=== PATIENT | female | born 1975 | race Caucasian/White ===

== ENCOUNTER 2020-04-10 14:57 | Outpatient (CLI) | payer OTHER ==
--- NOTE | 2020-04-12 11:09 | Mammography Report ---
BILATERAL DIGITAL SCREENING MAMMOGRAM: 04/10/2020 CLINICAL: Routine screening. Comparison is made to exams dated: 12/08/2017 mammogram, 12/24/2016 mammogram, and 11/28/2015 mammogram - [facility]. There are scattered fibroglandular elements in both breasts. No significant masses, calcifications, or other findings are seen in either breast. There has been no significant interval change. IMPRESSION: NEGATIVE There is no mammographic evidence of malignancy. A 1 year screening mammogram is recommended. This exam was interpreted at Station ID: [id number]. NOTE: For mammograms, a report in lay terms will be sent to the patient. Approximately 15% of breast malignancies will not be visualized mammographically. In the management of a palpable breast mass, a negative mammogram must not discourage biopsy of a clinically suspicious lesion. Electronically Signed By: Brendan Koch M.D. atwing/ginnyrad:04/11/2020 17:40:00 ACR BI-RADS Category 1: Negative 3341F PARENCHYMAL PATTERN: (A) - The breast(s) demonstrate(s) scattered fibroglandular densities. BI-RADS CATEGORY: (1) - 1 RECOMMENDATION: (ANNUAL) - Recommend routine annual screening mammography. [id number] 1 year screening LATERALITY: (B)
== END 2020-04-10 14:58 | disposition home or self-care (01) ==
LOC: DI.N 14:57
DX: Z12.31 Encounter for screening mammogram for malignant neoplasm of breast (principal)
CPT/HCPCS: 77067

== ENCOUNTER 2022-12-02 15:45 | Outpatient (CLI) | payer OTHER ==
--- NOTE | 2022-12-02 12:17 | Sleep Patient Instructions ---
Sleep Center Visit Summary - Patient Visit Information Reason for Visit: Initial consult for evaluation of sleep disordered breathing and other sleep issues. - Patient Instructions Instructions Attached: Sleep Study, Sleep Clinic Visit Additional Instructions: You will be completing a sleep study, either an in-lab polysomnography (PSG) or home sleep study (HST). You will follow-up in the sleep care office after the sleep study is completed to hear the results and talk about therapy, if needed. You will be called by our office staff to schedule this appointment, but you may contact us with any questions. - Clinic Information Contact: [facility] [address] [place] [address] [email or web address] T: [phone]
[2022-12-02 16:25] VITALS: BP 122/76
--- NOTE | 2022-12-02 16:25 | SLEEP CARE CONSULTATION ---
Information from patient questionnaire entered by Maria Del Carmen Mccormick. I have reviewed and concur with the information entered by Maria Del Carmen Mccormick. This document represents the service I personally performed and the decisions made by me, Julissa Coley ARNP. History of Present Illness Service Date and Time: 12/02/2022 1545 Reason for Visit: New patient Chief Complaint: reports: Unrefreshed sleep, Snoring, Observed pauses in breathing, Fatigue, Frequent awakenings at night Date of Onset: 3-4YRS Usual bedtime: 10 PM Time it takes to fall asleep: 30-60 MIN Snores at night: Yes Observed to quit breathing while asleep: Yes Sleeps alone due to snoring: No Number of times waking at night: 2-3 Reasons for waking at night: reports: Choking, Snoring, Gasping for air, Bathroom Toss, Turn, or Twitch while sleeping: Yes Recalls having dreams: Yes Usually gets out of bed at: 7-730 AM Feels refreshed in the morning: No Morning headache: Yes (3-4 days a week; 9-10AM) Sleepy or fatigued during the day: Yes Ever fallen asleep while driving: No Takes day naps: No Dreams during day naps: No Prior sleep studies: No Additional HPI information: I had the pleasure of seeing CALI BARON today regarding the possibility of her having a sleep disorder. Her current complaints are fatigue, frequent night awakenings, observed pauses in breathing, snoring and unrefreshed sleep. She states she does not wake up feeling refreshed in the morning. She is fatigue during the day. She is a teacher. She has been told she snores loudly and has some pauses in breathing when asleep. She states she is waking herself up with snoring and sometimes a gasping of air. - Parasomnia Symptoms Ever been unable to move upon waking from sleep: No Walks in sleep: No Talks in sleep: Yes Ever acted out dreams in sleep: Yes (small hand movements) Ever felt weak in the knees when startled or emotional: No Bothered by creepy, crawly, restless sensations in legs: Yes (sometimes; evenings mostly) Problems with memory or concentration: Yes (more memory) Subjective Initial [place] Sleepiness Scale score: 9 (12/02/22) Past Medical History Past Medical History: reports: Other (ALLERGIES SEASONAL) Social History The patient's occupation is a TEACHER. Patient is and lives in [place]. Have you smoked in the past 12 months: No Alcohol use: No Caffeine use: Yes Caffeine amount and frequency: 1-2CUPS DAILY Family History Family history of sleep disordered breathing: Yes Family Hx Sleep Apnea: Mother: Snoring, Father: Snoring, Sibling: Snoring, Sleep apnea - Untreated Allergies and Home Medications Known drug allergies: No Drug allergies reviewed: Yes Home medication list reviewed: Yes Allergy and home medication list: Medications: Flonase Kiana Multivitamins Review of Systems Weight gain over past 5 years: 15 Cardiovascular: denies: high blood pressure Respiratory: reports: chronic cough. denies: shortness of breath Gastrointestinal: denies: heartburn Urinary: reports: frequency Neurological: reports: headaches. denies: seizure, head trauma Psychiatric: denies: Attention Deficit Hyperactivity, anxiety, depression Ear/Nose/Throat: reports: nasal congestion, sinus problems, dry mouth/throat. denies: tonsillectomy Endocrine: reports: excessive thirst, increased urination. denies: thyroid disease Immunologic: reports: sneezing, allergies to food or environment Physical Exam Vital signs obtained and entered by: MARIA DEL CARMEN Perez MA Blood Pressure: 122/76 (LEFT ARM) Cuff size: regular Heart Rate: 92 O2 Saturation: 98 Height: 4 ft 11.5 in Weight: 174 lb Body Mass Index: 34.5 BMI Classification: Obese Neck circumference: 14 Mouth and throat: narrow oropharynx Soft palate: long Hard palate: normal Uvula: normal Uvula visualization: 25% Mallampati Class III Tongue: enlarged in size with teeth rodríguez on lateral edges Tonsils: small Neck: normal w/o lymphadenopathy or thyromegaly Heart: regular rate and rhythm Lungs: clear bilaterally Impression and Plan 1. Suspected Obstructive Sleep Apnea-Hypopnea Syndrome, as suggested by a history of loud and irregular snoring, observed cessation of breath while asleep, gasping or choking in sleep, morning headache, frequent awakening during the night, unrefreshed sleep, cognitive impairment, and excessive daytime sleepiness. Narrow oropharynx and obesity are common predisposing factors for obstructive sleep apnea-hypopnea syndrome. I recommend proceeding to polysomnography to confirm the diagnosis and to assess severity. If the patient has significant sleep disordered breathing, a manual CPAP titration study will also be performed to find the optimal treatment pressure. I informed the patient of what the sleep studies involve and after some discussion, obtained agreement to proceed. The pathophysiology of obstructive sleep apnea-hypopnea syndrome was discussed with the patient and health risks of cardiovascular and cerebrovascular disease if not treated. Risks of drowsy driving discussed in detail and patient advised to avoid long distance driving and to casing puller at the first sign of drowsiness. Patient agreed to plan. * Schedule polysomnography +- manual CPAP titration study and return in 1-2 weeks after the study to discuss result and initiate therapy. * Avoid long distance driving or driving when feeling sleepy. * Avoid alcohol, sedative and muscle relaxant around bedtime. * Attempt to lose weight. * Review instructions provided by trained office staff on how to prepare for the sleep study. * Return for follow-up after sleep study completed. Counseling Topics: Weight loss health impact Visit Type: In Office Time Spent with Patient (minutes): 25 Provider Statement: I spent 100% of the Face to Face Visit with the patient with greater than 50% spent counseling the patient and coordination of care.
== END 2022-12-02 15:46 | disposition home or self-care (01) ==
LOC: SC 15:45
PROVIDERS: ATTEND Nurse Practitioner Family
DX: G47.10 Hypersomnia, unspecified (principal); R53.83 Other fatigue; G47.8 Other sleep disorders; R51.9 Headache, unspecified; R06.83 Snoring; R06.81 Apnea, not elsewhere classified; E66.9 Obesity, unspecified; Z68.34 Body mass index [BMI] 34.0-34.9, adult
CPT/HCPCS: 99202; 99212

== ENCOUNTER 2022-12-16 15:16 | Outpatient (CLI) | payer OTHER | END 2022-12-16 15:17 | disposition home or self-care (01) | LOC: SC 15:16 | PROVIDERS: ATTEND Nurse Practitioner Family | DX: R09.02 Hypoxemia (principal); R00.0 Tachycardia, unspecified | CPT/HCPCS: 95806 ==

== ENCOUNTER 2023-01-19 13:12 | Outpatient (CLI) | payer OTHER ==
--- NOTE | 2023-01-19 08:59 | SLEEP CARE CONSULTATION ---
Information from patient questionnaire entered by Maria Del Carmen Mccormick. I have reviewed and concur with the information entered by Maria Del Carmen Mccormick. This document represents the service I personally performed and the decisions made by , Julissa Coley ARNP. History of Present Illness Service Date and Time: 01/19/2023 0840 Initial [place] Sleepiness Scale score: 9 (12/02/22) Current [place] Sleepiness Scale score: 9 (01/22/23) Additional HPI information: CALI BARON returns for follow up and results of the recently performed home sleep study. The patient was informed of the following findings: No significant sleep disordered breathing with an average AHI of 3.7 and matilde oxygen saturation of 83%. Patient only slept prone during the study, cannot rule out supine sleep disordered breathing. Tachycardia with elevated heart rate to 149 during study. I explained the pathophysiology behind obstructive sleep apnea. Patient does not have sleep apnea and was advised how weight gain could increase the risk of developing sleep apnea in the future. I strongly encouraged the patient to lose weight. Patient has light snoring. Snoring can be reduced by weight loss. Weight loss is best achieved with diet consult. Patient instructed to contact PCP for referral. Snoring can also be treated with an oral appliance from a dentist. Advised to check insurance coverage. In addition, an ENT evaluation can be do to see if other treatment is indicated. Patient does not drink alcohol. Patient was cautioned about risks of drowsy driving until sleepiness symptoms resolve. Patient denies drowsy driving. Sleep Study - Results Type of Sleep Study: Home sleep study (COMPLETED 12/16/22) Prior sleep studies: No Polysomnography/Home Sleep Study results: Physician Impression: The quality of the study is good. The length of the study is adequate (> 240 minutes). Please also see the tabulated and graphic data. 1. No significant sleep disordered breathing, with an AHI of 3.7/hr and matilde SaO2 of 83%. During the study, the patient had 15 apneas (15 obstructive, 0 central, 0 mixed) and 15 hypopneas. The longest episode lasted 91.5 seconds. The patient only slept prone (supine AHI was and non-supine, 3.70). 2. Hypoxemia (ICD-10 R09.02), minimal, with the lowest oxygen saturation of 83 % and 0.1 minutes with SaO2 under 90%. Baseline oxygen saturation was normal (Average oxygen saturation was 95%). 3. Tachycardia, with maximum recorded heart rate of 149 beats per minute. Allergies and Home Medications Known drug allergies: No Drug allergies reviewed: Yes Home medication list reviewed: Yes (no changes) Allergy and home medication list: Allergies No Known Drug Allergies Allergy (Verified 01/18/23 15:52) Review of Systems Review of systems same as previous: Yes (no changes) Physical Exam Vital signs obtained and entered by: MARIA DEL CARMEN Perez MA Height: 4 ft 11 in (PER PT) Weight: 160 lb (PER PT) Body Mass Index: 32.3 BMI Classification: Obese Impression and Plan 1. Snoring but no significant sleep disordered breathing. However, patient did not sleep supine so sleep disordered breathing when supine cannot be ruled out with this study. Patient advised that often weight loss will reduce snoring as well as apnea risk. An oral appliance can also be used for snoring. This would require a dental consultation. Patient cautioned not to use other online appliances as can cause bite issues. A list of accredited dentists in [facility] and one local dentist who makes oral appliances is available in office as needed. Patient is advised to check if insurance will cover. An ENT consult can also be helpful to determine if any other treatment is an option. 2. Tachycardia, unspecified. Patient had an elevated heart rate recorded during the sleep study with highest rate at 149 BPM. Patient was advised to followup with primary doctor for further evaluation as needed. 3. Suspected Obstructive Sleep Apnea-Hypopnea Syndrome, as suggested by a history of loud and irregular snoring, observed cessation of breath while asleep, gasping or choking in sleep, morning headache, frequent awakening during the night, unrefreshed sleep, cognitive impairment, and excessive daytime sleepiness. Patient completed HST but did not sleep supine during the study. She also had an elevated heart rate. I recommend proceeding to polysomnography to confirm the diagnosis and to assess severity. I obtained agreement to proceed. The pathophysiology of obstructive sleep apnea-hypopnea syndrome was discussed with the patient and health risks of cardiovascular and cerebrovascular disease if not treated. Risks of drowsy driving discussed in detail and patient advised to avoid long distance driving and to breast puller at the first sign of drowsiness. Patient agreed to plan. * PSG to verify diagnosis and severity * Follow up with primary provider for tachycardia noted during sleep study * Attempt to lose weight * Return for follow-up after sleep study completed. Counseling Topics: Weight loss health impact Visit Type: Telehealth Video Patient Location: Home Location of Provider: Office Patient agrees and consents to this telehealth visit type: Yes Patient agrees to have their insurance billed: Yes Time Spent with Patient (minutes): 14 Provider Statement: I spent 100% of the Telehealth Video Call with the patient with greater than 50% spent counseling the patient and coordination of care.
== END 2023-01-19 13:13 | disposition home or self-care (01) ==
LOC: SC 13:12
PROVIDERS: ATTEND Nurse Practitioner Family
DX: R06.83 Snoring (principal); R00.0 Tachycardia, unspecified; R06.81 Apnea, not elsewhere classified; G47.8 Other sleep disorders; R51.9 Headache, unspecified; R41.89 Other symptoms and signs involving cognitive functions and awareness; G47.10 Hypersomnia, unspecified; E66.9 Obesity, unspecified; Z68.32 Body mass index [BMI] 32.0-32.9, adult

== ENCOUNTER 2023-03-17 20:49 | Outpatient (CLI) | payer OTHER | END 2023-03-17 20:50 | disposition home or self-care (01) | LOC: SC 20:49 | PROVIDERS: ATTEND Nurse Practitioner Family | DX: G47.61 Periodic limb movement disorder (principal) | CPT/HCPCS: 95810 ==

== ENCOUNTER 2023-04-14 15:57 | Outpatient (CLI) | payer OTHER ==
--- NOTE | 2023-04-14 16:13 | Sleep Patient Instructions ---
Sleep Center Visit Summary - Patient Visit Information Reason for Visit: Sleep study follow-up - Patient Instructions Instructions Attached: Snoring Tips Prevent Additional Instructions: Your sleep study today was negative for significant sleep disordered breathing. You were found to have episodes of snoring. There are different ways to control snoring including weight loss, oral devices made by a dentist or surgical options through ENT specialist. You should not use oral devices that do not fit properly because they can affect your bite. You should also check insurance coverage of oral devices for snoring because they may not be cover well. You may obtain a referral to an ENT specialist through your primary provider. Follow-up as needed. - Clinic Information Contact: [facility] [address] [place] [address] [email or web address] T: [phone]
--- NOTE | 2023-04-14 16:15 | SLEEP CARE CONSULTATION ---
Information from patient questionnaire entered by Maria Del Carmen Mccormick. I have reviewed and concur with the information entered by Maria Del Carmen Mccormick. This document represents the service I personally performed and the decisions made by , Julissa Coley ARNP. History of Present Illness Service Date and Time: 04/14/2023 155 Initial [place] Sleepiness Scale score: 9 (12/02/22) Current [place] Sleepiness Scale score: 9 (04/14/23) Additional HPI information: CALI BARON returns for follow up and results of the recently performed polysomnography. The patient was informed of the following findings: No significant sleep disordered breathing with an average AHI of 0.9 and matilde oxygen saturation of 87%. Mild PLMs noted that did not contribute to sleep fragmentation. I explained the pathophysiology behind obstructive sleep apnea. Patient does not have sleep apnea and was advised how weight gain could increase the risk of developing sleep apnea in the future. I strongly encouraged the patient to lose weight. Patient has moderate to loud snoring. Snoring can be reduced by weight loss. Weight loss is best achieved with diet consult. Patient instructed to contact PCP for referral. Snoring can also be treated with an oral appliance from a dentist. Advised to check insurance coverage. In addition, an ENT evaluation can be do to see if other treatment is indicated. Patient does not drink alcohol. Patient was cautioned about risks of drowsy driving until sleepiness symptoms resolve. Patient denies drowsy driving. Sleep Study - Results Type of Sleep Study: Polysomnography (COMPLETED 03/17/23) Prior sleep studies: No Polysomnography/Home Sleep Study results: IMPRESSION: The quality of the study is good. The patient had normal sleep efficiency. The sleep architecture was relatively normal considering the first-night effect. Respiratory monitoring showed no significant sleep disordered breathing (AHI = 0.9) or hypoxia (matilde oxygen saturation of 87%). The patient slept adequately in supine position (supine AHI = 2.4; non-supine = 0.00). Snore was moderate to loud in intensity. There was mild periodic leg movement of sleep not associated with sleep fragmentation. Cardiac rhythm was normal sinus rhythm without significant arrhythmia. No abnormal behavior (parasomnia) observed during the night. Allergies and Home Medications Known drug allergies: No Drug allergies reviewed: Yes Home medication list reviewed: Yes (no changes) Allergy and home medication list: Allergies No Known Drug Allergies Allergy (Verified 04/13/23 14:24) Review of Systems Review of systems same as previous: Yes (no changes) Physical Exam Vital signs obtained and entered by: MARIA DEL CARMEN Perez MA Blood Pressure: 125/82 (RIGHT) Cuff size: wrist Heart Rate: 102 O2 Saturation: 98 Height: 4 ft 11 in (PER PT) Weight: 178 lb 12.8 oz Body Mass Index: 36.1 BMI Classification: Obese Impression and Plan 1. Snoring but no significant sleep disordered breathing. Patient advised that often weight loss will reduce snoring as well as apnea risk. An oral appliance can also be used for snoring. This would require a dental consultation. Patient cautioned not to use other online appliances as can cause bite issues. Patient is advised to check if insurance will cover. An ENT consult can also be helpful to determine if any other treatment is an option. 2. Periodic limb movement, mild, that did not fragment patients sleep. Periodic limb movement of sleep (PLMS) is characterized by episodes of repetitive limb movements that occur during sleep and usually involve the lower limbs. The etiology is unknown. Caffeine can aggravate PLMS and should be avoided. Sleep hygiene methods can also improve sleep as well as lifestyle changes such as r egular exercise. Patient was advised that no treatment is needed at this time. If symptoms increase, then further evaluation is indicated. 2. Obesity, unspecified. Currently patients BMI is 36.1. Obesity increases the risk of apnea, CPAP pressure requirements and overall health risks especially cardiovascular and diabetes. Thus patient is advised to lose weight. * Attempt to lose weight * Return as needed for follow up. Counseling Topics: Weight loss health impact Visit Type: In Office Time Spent with Patient (minutes): 14 Provider Statement: I spent 100% of the Face to Face Visit with the patient with greater than 50% spent counseling the patient and coordination of care.
[2023-04-14 16:18] VITALS: BP 125/82; O2SAT 98
== END 2023-04-14 15:58 | disposition home or self-care (01) ==
LOC: SC 15:57
PROVIDERS: ATTEND Nurse Practitioner Family
DX: R06.83 Snoring (principal); G47.61 Periodic limb movement disorder; E66.9 Obesity, unspecified; Z68.36 Body mass index [BMI] 36.0-36.9, adult
CPT/HCPCS: 99212

== ENCOUNTER 2023-08-26 16:42 | Outpatient (CLI) | payer OTHER ==
--- NOTE | 2023-08-26 20:03 | XRAY Report ---
PROCEDURE: Chest 2V INDICATIONS: BRONCHITIS, NOT SPECIFIED ACUTE OR CHRONIC TECHNIQUE: 2 views of the chest were acquired. COMPARISON: None. FINDINGS: Surgical changes and devices: None. Lungs and pleura: No pleural effusions or pneumothorax. Lungs are clear. Mediastinum: Mediastinal contours appear normal. Heart size is normal. Bones and chest wall: No suspicious bony lesions. Overlying soft tissues appear unremarkable. IMPRESSION: No acute cardiopulmonary process. Reviewed by: Mando Villela MD on 08/26/2023 8:02 PM [facility] Approved by: Mando Villela MD on 08/26/2023 8:02 PM [facility] Station ID: [id number]
== END 2023-08-26 16:43 | disposition home or self-care (01) ==
LOC: DI 16:42
PROVIDERS: ATTEND Family Medicine
DX: J40 Bronchitis, not specified as acute or chronic (principal)